=== PATIENT | female | born 1985 | race Caucasian/White ===

== ENCOUNTER → 2018-01-08 | Outpatient (CLI) | payer OTHER ==
--- NOTE | 2018-01-08 09:17 | NM ---
EXAMINATION TYPE: NM hepatobiliary w EF DATE OF EXAM: 01/08/2018 COMPARISON: NONE HISTORY: 32 year-old female right upper quadrant pain TECHNIQUE: After the intravenous administration of 5.2 mCi Tc 99m Mebrofenin hepatobiliary scintigrap hy is performed. Immediate images post injection. FINDINGS: There is satisfactory initial accumulation of tracer by the liver. The gallbladder is visualized wit hin 6 minutes. The small bowel activity is noted within 14 minutes. At one hour 8 ounces of oral en sure plus is given to mimic CCK and gallbladder ejection fraction is calculated at 52 %, in the naveed l range. Therefore there is no scintigraphic evidence of cystic or common bile duct obstruction to s uggest acute cholecystitis or gallbladder dyskinesia. IMPRESSION: Exam is within normal limits.
== END | disposition home or self-care (01) ==
LOC: RADNMMAIN 07:04
DX: R10.11 Right upper quadrant pain (principal)
CPT/HCPCS: 78226; A9537

== ENCOUNTER 2018-03-22 06:25 | Day surgery (SDC) | payer OTHER ==
[2018-03-16 16:18] VITALS: BMI 20.1
--- NOTE | 2018-03-21 15:12 | P.GSHP ---
History of Present Illness H&P Date: 03/22/18 CHIEF COMPLAINT: Rectal bleeding HISTORY OF PRESENT ILLNESS: The patient is a 32-year-old female who presents for removal of hemorrhoids and colonoscopy. PAST MEDICAL HISTORY: Please see list. PAST SURGICAL HISTORY: Please see list. MEDICATIONS: Please see list. ALLERGIES: Please see list. SOCIAL HISTORY: No illicit drug use FAMILY HISTORY: No reports of Crohn disease or ulcerative colitis. REVIEW OF ORGAN SYSTEMS: CONSTITUTIONAL: No reports of fevers or chills. PHYSICAL EXAM: VITAL SIGNS: Stable GENERAL: Well-developed pleasant in no acute distress. HEENT: No scleral icterus. Extraocular movements grossly intact. Moist buccal mucosa. NECK: Supple without lymphadenopathy. CHEST: Unlabored respirations. Equal bilateral excursions. CARDIOVASCULAR: Regular rate and rhythm. Distal 2+ pulses. ABDOMEN: Soft, nontender, nondistended. MUSCULOSKELETAL: No clubbing, cyanosis, or edema. ASSESSMENT: 1. Rectal bleeding PLAN: 1. Recommend colonoscopy with removal of hemorrhoids Past Medical History Past Medical History: Asthma Additional Past Medical History / Comment(s): HX KIDNEY STONES X2. HEMORRHOIDS. BLOOD IN STOOL. History of Any Multi-Drug Resistant Organisms: None Reported Additional Past Surgical History / Comment(s): MISSED AB D&C. Past Anesthesia/Blood Transfusion Reactions: Motion Sickness Smoking Status: Former smoker - Past Family History Father Family Medical History: Cancer Medications and Allergies Home Medications Medication Instructions Recorded Confirmed Type ALPRAZolam [Xanax] 1 mg PO DAILY 03/16/18 03/16/18 History Hyoscyamine Sulfate [Levbid] 0.375 mg PO BID 03/16/18 03/16/18 History Ibuprofen 800 mg PO Q8H PRN 03/16/18 03/16/18 History Lidocaine 2% Gel [Xylocaine Jelly 1 applic RECTAL BID PRN 03/16/18 03/16/18 History 2%] Venlafaxine HCl [Effexor] 37.5 mg PO DAILY 03/16/18 03/16/18 History Allergies Allergy/AdvReac Type Severity Reaction Status Date / Time morphine Allergy Itching, Verified 03/16/18 15:44 VOMITING, FACE SWELLS
[~2018-03-22 06:25] MED LIST: ACETAMINOPHEN IV (For NPO) 1,000 MG in EMPTY BAG 1 BAG IVPB ONE; BUPIVACAINE LIPOSOME/PF 1.3% 20 ML, SODIUM CHLORIDE 0.9% 10 ML MISCELLANE ONE; DEXAMETHASONE SOD PHOSPHATE 10 MG/ML 1 ML VIAL IV ONE; LACTATED RINGERS 1,000 ML IV SCH; ONDANSETRON ODT 4 MG TAB PO ONE; Pre Op ABX Message 1 EACH MISC MISCELLANE ONE; ceFAZolin IN SWFI 2 GM/20 ML SYRINGE IVP ONE; fentaNYL (PF) 50 MCG/ML 2 ML AMP IV PRN; metroNIDAZOLE-NS PMX 500 MG in SALINE 100 100ML.BAG IVPB ONE
[2018-03-22 07:11] VITALS: RESP 16
[2018-03-22] MEDS ORDERED: LIDOCAINE 1% 20 ML VIAL (10MG/ML) FOR IV START INTRADERMA ONE (07:11)
[2018-03-22] MEDS ORDERED: ONDANSETRON 4 MG/2 ML VIAL IVP ONE (07:17)
[2018-03-22] MEDS ORDERED: fentaNYL (PF) 50 MCG/ML 2 ML AMP ONE (07:37)
[2018-03-22] MEDS ORDERED: PROPOFOL 10 MG/ML 20 ML VIAL IV ONE (07:37)
[2018-03-22] MEDS ORDERED: MIDAZOLAM 2 MG/2 ML VIAL ONE (07:37)
[2018-03-22] MEDS ORDERED: PHENYLEPHRINE-0.9% NACL SYG 1 MG/10 ML SYRINGE ONE (07:37)
[2018-03-22] MEDS ORDERED: LACTATED RINGERS 1,000 ML IV ONE (08:25)
[2018-03-22] MEDS ORDERED: BACITRACIN OINT 1 EACH PACKET TOPICAL ONE (08:34)
[2018-03-22 08:46] VITALS: TEMP 97
--- NOTE | 2018-03-22 08:46 | P.HPADDEND ---
H&P Addendum H&P Addendum Date: 03/22/18 Patient's questions addressed. Postoperative instructions reviewed including antibiotics, pain meds, stool softener. Sitz bath reviewed.
--- NOTE | 2018-03-22 08:50 | P.PCN ---
Date of Procedure: 03/22/18 Description of Procedure: PREOPERATIVE DIAGNOSIS: Rectal bleeding. POSTOPERATIVE DIAGNOSIS: Rectal bleeding. Internal hemorrhoids. External hemorrhoids. OPERATION: Colonoscopy to the ascending colon, flexible sigmoidoscopy SURGEON: Marian Wyman MD. ANESTHESIA: MAC. INDICATIONS: The patient is a 32-year-old female who presents with rectal bleeding. Colonoscopy was advised. Benefits and risks were described and informed consent was obtained. DESCRIPTION OF PROCEDURE: The patient had undergone Gatorade, MiraLAX and Dulcolax prep. She had been brought into the operating room and laid in the left lateral decubitus position. After adequate intravenous sedation, the rectum was examined with 2% lidocaine jelly. External hemorrhoids were encountered. The rectal tone was within normal limits. No lesions were palpated in the rectal vault. An Olympus colonoscope was advanced along the rectum to a very tortuous sigmoid colon. Despite multiple maneuvers, the sigmoid colon had tortuosity prevented further advancement of scope. The scope was passed to 60 cm from the anal verge. No evidence of polyps were identified. The patient had tolerated the procedure well. FINDINGS: Tortuous sigmoid colon External prolapsed hemorrhoids. Internal prolapsed hemorrhoids Scope advanced to sigmoid colon at 60 cm. No arteriovenous malformations. No adenomatous polyps. No focal colitis. RECOMMENDATIONS: Proceed with hemorrhoidectomy
--- NOTE | 2018-03-22 08:58 | P.PCN ---
Date of Procedure: 03/22/18 Description of Procedure: SURGEON: MARIAN WYMAN MD LASTING MACHINE OPERATOR: NONE. PREOPERATIVE DIAGNOSES: 1. History of complicated internal hemorrhoids, grade 4 2. History of complicated external hemorrhoids, grade 4. 3. Rectal bleeding. POSTOPERATIVE DIAGNOSES: 1. History of complicated internal hemorrhoids, grade 4, with bleeding. 2. History of complicated external hemorrhoids, grade 4. 3. Rectal bleeding. OPERATION: 1. Intraoperative colonoscopy (please see separate operative report). 2. Excision of internal and external hemorrhoids x3 using LigaSure. ANESTHESIA: General with local anesthetic, Exparel. ESTIMATED BLOOD LOSS: 1 mL. PATHOLOGY: Internal, external hemorrhoidal complex x 3. FINDINGS: 1. Complicated internal hemorrhoid, grade 4 with recent bleed. 2. External hemorrhoid, grade 4 excised. 3. No anal stricture upon excision of hemorrhoidal complexes. INDICATIONS: The patient is a 32-year-old female who presents with history of rectal bleeding. She has history of complicated hemorrhoids. She presents for excision of her hemorrhoids including colonoscopy. Benefits and risks of the procedure, including bleeding, infection, incontinence, recurrent pain and recurrence of the hemorrhoids were discussed in detail. Informed consent was obtained. DESCRIPTION: Patient was brought to the operating room. An initial intraoperative colonoscopy was proposed. The patient was repositioned in the left lateral decubitus position. A timeout protocol and an intraoperative colonoscopy was completed. Please see separate operative report for details. The patient was now prepared for the surgical portion of her procedure. After general induction, she was then repositioned the prone jackknife position. Next, the perineum and buttocks was spread apart using Mastisol. The perineum was then prepped and draped in standard sterile fashion using Betadine. Preoperative medication was confirmed. Prior to incision, a timeout protocol was confirmed with surgical team. Initially 2 fingers was easily inserted for dilation of the anus. Next, using a Hill-Higgins anoscope, each hemorrhoidal cushion was addressed using a hand-held LigaSure. In a stepwise fashion, each hemorrhoidal complex was elevated using an Allis clamp. Of the right lateral cushion, a grade 4 internal and external hemorrhoidal complex of recent bleeding was encountered and excised. Next, attention was brought to the anterior lateral portion whereby grade 4 internal/external hemorrhoid was also excised in a similar fashion using a LigaSure. Finally the hemorrhoidal complex was elevated using a Allis clamp and the left lateral cushion was excised at the internal and external complex using a LigaSure device. Careful hemostasis was checked and without any bleeding. At the end of the case, the anus was without any features of the anal stricture or stenosis. Please note that prior to hemorrhoidectomy a rectal block using Exparel was placed for anesthetic. The perineum was cleansed. Bacitracin ointment was applied. A 4 x 4 with mesh underwear was placed. At the end of the procedure, needle, sponge, and counts had been verified correct by the surgical scheduler. The patient then had tolerated the procedure well. Intraoperative findings including postoperative care instructions were discussed with her family whereby she Sitz baths at least 3 times daily was advised. Stool softeners including prophylactic Flagyl for 5 to 7 day course was also addressed as well as pain medication. Plan - Discharge Summary New Discharge Prescriptions: New Docusate [Colace] 100 mg PO DAILY #20 capsule metroNIDAZOLE [Flagyl] 500 mg PO BID #10 tab Discontinued Lidocaine 2% Gel [Xylocaine Jelly 2%] 1 applic RECTAL BID PRN PRN Reason: RECTAL PAIN No Action Ibuprofen 800 mg PO Q8H PRN PRN Reason: Pain Venlafaxine HCl [Effexor] 37.5 mg PO DAILY Hyoscyamine Sulfate [Levbid] 0.375 mg PO BID ALPRAZolam [Xanax] 1 mg PO DAILY Discharge Medication List ALPRAZolam [Xanax] 1 mg PO DAILY 03/16/18 [History] Hyoscyamine Sulfate [Levbid] 0.375 mg PO BID 03/16/18 [History] Ibuprofen 800 mg PO Q8H PRN 03/16/18 [History] Venlafaxine HCl [Effexor] 37.5 mg PO DAILY 03/16/18 [History] Docusate [Colace] 100 mg PO DAILY #20 capsule 03/22/18 [Rx] metroNIDAZOLE [Flagyl] 500 mg PO BID #10 tab 03/22/18 [Rx] Follow up Appointment(s)/Referral(s): Marian Wyman MD [STAFF PHYSICIAN] - 03/30/18 Patient Instructions/Handouts: Sitz Bath (DC), *Surgery [facility] - Hemorrhoidectomy Discharge Instructions Activity/Diet/Wound Care/Special Instructions: Sitz bath 3 times daily and after bowel movements. Discontinue stool softener for diarrhea. Discharge Disposition: HOME SELF-CARE
[2018-03-22] MEDS ORDERED: IV FLUID CONTINUATION 1,000 ML IV ONE (09:41)
[2018-03-22] MEDS ORDERED: HYDROcodone/APAP 5-325MG 1 EACH TAB PO ONE (10:48)
[2018-03-22 11:08] VITALS: BP 118/76; PULSE 67
== END 2018-03-22 11:39 | disposition home or self-care (01) ==
LOC: OR 06:25
PROVIDERS: ATTEND Surgery Plastic and Reconstructive Surgery
DX: K64.3 Fourth degree hemorrhoids (principal); K62.5 Hemorrhage of anus and rectum; Q43.8 Other specified congenital malformations of intestine; J45.909 Unspecified asthma, uncomplicated; Z87.891 Personal history of nicotine dependence; F41.9 Anxiety disorder, unspecified; K58.9 Irritable bowel syndrome, unspecified; Z79.899 Other long term (current) drug therapy; Z88.5 Allergy status to narcotic agent
CPT/HCPCS: 81025; 88304; 45380; 46945; 46999; J2250; J1100; J2405; J3010; J0131; J2370; C9290; J2704; J0690

== ENCOUNTER 2018-04-17 20:41 | Emergency (ER) | payer OTHER ==
[2018-04-17 20:49] VITALS: RESP 18; TEMP 98.4
--- NOTE | 2018-04-17 21:45 | ED ---
General Adult HPI - General Chief complaint: Recheck/Abnormal Lab/Rx Stated complaint: S/p surgical pain Time Seen by Provider: 04/17/18 21:10 Source: patient, family Mode of arrival: ambulatory Limitations: no limitations - History of Present Illness Initial comments: This patient is a 32-year-old woman who presents to be evaluated for perianal pain. Patient states she had a hemorrhoidectomy performed on March [address] Wyman. She states that she had been doing fairly well following the procedure and in fact did not go to the scheduled postoperative as she was doing pretty well. She states that on Thursday or so she started having sharp pains when she attempted to have bowel movement. This prompted her to call Dr. Wyman and she was seen in the clinic for the sharp pains, or she states she was given additional prescription for lidocaine as well as hydrocodone. She states that she continues to have the sharp pains every time she attempts to have bowel movement and she has at times noted small amount of blood passing. No clots. Patient denies abdominal pain. Onset/Timin -: days(s) - Related Data Home Medications Medication Instructions Recorded Confirmed ALPRAZolam [Xanax] 1 mg PO DAILY 03/16/18 04/17/18 Hyoscyamine Sulfate [Levbid] 0.375 mg PO BID 03/16/18 04/17/18 Ibuprofen 800 mg PO Q8H PRN 03/16/18 04/17/18 Venlafaxine HCl [Effexor] 37.5 mg PO DAILY 03/16/18 04/17/18 Previous Rx's Medication Instructions Recorded Docusate [Colace] 100 mg PO DAILY #20 capsule 03/22/18 HYDROcodone/APAP 5-325MG [[place] 1 tab PO Q6HR PRN #20 tab 03/22/18 5-325] Ibuprofen [Motrin] 600 mg PO Q8HR PRN #30 tab 03/22/18 HYDROcodone/APAP 7.5-325MG [[place] 1 each PO Q4H PRN #30 tab 03/26/18 7.5-325] HYDROcodone/APAP 7.5-325MG [[place] 1 each PO Q4H PRN #18 tab 04/13/18 7.5-325] Hydrocortisone/Pramoxine 0 applic RECTAL BID #1 bottle 04/17/18 [Proctofoam-Hc 1%-1% Foam] Lidocaine Viscous [Xylocaine 2 ml TOPICAL TID PRN #100 ml 04/17/18 Viscous 2%] Allergies Allergy/AdvReac Type Severity Reaction Status Date / Time morphine Allergy Itching, Verified 04/17/18 20:49 VOMITING, FACE SWELLS Review of Systems ROS Statement: Those systems with pertinent positive or pertinent negative responses have been documented in the HPI. ROS Other: All systems not noted in ROS Statement are negative. Past Medical History Past Medical History: Asthma Additional Past Medical History / Comment(s): HX KIDNEY STONES X2. HEMORRHOIDS. BLOOD IN STOOL. History of Any Multi-Drug Resistant Organisms: None Reported Additional Past Surgical History / Comment(s): MISSED AB D&C., hemorrhoidectomy Past Anesthesia/Blood Transfusion Reactions: Motion Sickness Past Psychological History: Anxiety, Depression, Panic Disorder Smoking Status: Former smoker Past Alcohol Use History: None Reported Past Drug Use History: None Reported - Past Family History Father Family Medical History: Cancer General Exam Limitations: no limitations Respiratory exam: Present: normal lung sounds bilaterally. Absent: respiratory distress Cardiovascular Exam: Present: regular rate, normal rhythm GI/Abdominal exam: Present: soft. Absent: tenderness, guarding, rebound, mass Rectal exam: Present: normal inspection, normal rectal tone, tenderness, other ( Patient has 1 small external hemorrhoid without evidence of being thrombosed. I did attempt digital rectal examination and the patient has marked tenderness and appears to have anal fissure as the etiology.). Absent: decreased rectal tone, mass Skin exam: Present: warm, dry, intact, normal color. Absent: rash Course Vital Signs 04/17/18 04/17/18 20:45 21:56 Temperature 98.4 F 98.4 F Pulse Rate 88 69 Respiratory 18 18 Rate Blood Pressure 133/59 114/55 O2 Sat by Pulse 100 99 Oximetry Medical Decision Making - Medical Decision Making Patient is a 32-year-old woman with perianal pain and difficulty passing a bowel movement. It appears that this is due to anal fissure which is quite tender. The digital rectal exam is a bit limited due to patient discomfort but I did not detect any abscess. The patient requested that she receive some pain relief so she could pass a bowel movement tonight at home. I discussed risks and benefits and the patient requested that she be given a lidocaine shot. I did give some longer acting bupivacaine so that she may pass a bowel movement tonight. Discussed that there is risk of infection associated with any injection near the anus. The patient is to follow-up first thing in the clinic, or return here tomorrow should things not be improving to have consideration of computed tomography scan to rule out abscess higher up than I was able to assess with the digital rectal exam. Disposition Clinical Impression: Anal fissure, Hemorrhoid Disposition: HOME SELF-CARE Condition: Good Instructions: Hemorrhoids (ED), Anal Fissure (ED) Prescriptions: Hydrocortisone/Pramoxine [Proctofoam-Hc 1%-1% Foam] 0 applic RECTAL BID #1 bottle Lidocaine Viscous [Xylocaine Viscous 2%] 2 ml TOPICAL TID PRN #100 ml PRN Reason: Pain Is patient prescribed a controlled substance at d/c from ED?: No Referrals: Shanda Dias MD [Primary Care Provider] - 1-2 days Marian Wyman MD [STAFF PHYSICIAN] - 1-2 days
[2018-04-17 21:57] VITALS: BP 114/55; PULSE 69
[2018-04-17] MEDS ORDERED: BUPIVACAINE (PF) 0.5% 30 ML VIAL SQ STA (22:01)
== END 2018-04-17 22:43 | disposition home or self-care (01) ==
LOC: EC 20:41
DX: K64.4 Residual hemorrhoidal skin tags (principal); K60.2 Anal fissure, unspecified; F41.0 Panic disorder [episodic paroxysmal anxiety]; F32.9 Major depressive disorder, single episode, unspecified; Z87.891 Personal history of nicotine dependence; Z98.890 Other specified postprocedural states; Z79.899 Other long term (current) drug therapy; Z88.5 Allergy status to narcotic agent
CPT/HCPCS: 99283

== ENCOUNTER 2018-05-19 12:18 | Emergency (ER) | payer OTHER ==
[2018-05-19 12:36] VITALS: RESP 18; TEMP 98.8
[2018-05-19] MEDS ORDERED: KETOROLAC 30 MG/ML 1 ML VIAL IVP STA (13:10)
--- NOTE | 2018-05-19 13:17 | ED ---
GI Bleed HPI - General Chief complaint: GI Bleed Stated complaint: Post Op Rectal Bleeding Time Seen by Provider: 05/19/18 12:45 Source: patient, RN notes reviewed Mode of arrival: ambulatory Limitations: no limitations - History of Present Illness Initial comments: This is a 32-year-old female with a history of a hemorrhoidectomy on March 22 of this year states she's been having rectal pain with intermittent bleeding since that time. She states she was seen in emergency department one since and is back today because she states her pain is 13/10 in severity. He's had decreased oral intake because of fear of having bowel movements because of the pain. She states is very sharp ache he does radiate down to her vagina into her leg she says. No fevers chills or sweats she states she did fill a toilet bowl with blood this morning. She does relate that she is very tired of this she has had some lightheadedness and dizziness. No nausea no vomiting. She also does states she had a rectal fissure. MD complaint: blood on toilet paper, other - Related Data Home Medications Medication Instructions Recorded Confirmed ALPRAZolam [Xanax] 0.5 mg PO DAILY PRN 05/19/18 05/19/18 HYDROcodone/APAP 7.5-325MG [[place] 1 tab PO Q4H PRN 05/19/18 05/19/18 7.5-325] Phenyleph/Mineral Oil/Petrolat 1 applic RECTAL Q3H PRN 05/19/18 05/19/18 [Preparation H Ointment] Recticare 1 applic RECTAL Q3H PRN 05/19/18 05/19/18 Rectiv 1 applic RECTAL Q3H PRN 05/19/18 05/19/18 Christin Carrillo [Preparation H 1 pad TOPICAL Q3H PRN 05/19/18 05/19/18 Pad/Wipe] Previous Rx's Medication Instructions Recorded Ibuprofen [Motrin] 600 mg PO Q8HR PRN #30 tab 03/22/18 Allergies Allergy/AdvReac Type Severity Reaction Status Date / Time morphine Allergy Itching, Verified 05/19/18 12:50 VOMITING, FACE SWELLS Review of Systems ROS Statement: Those systems with pertinent positive or pertinent negative responses have been documented in the HPI. ROS Other: All systems not noted in ROS Statement are negative. Past Medical History Past Medical History: Asthma Additional Past Medical History / Comment(s): HX KIDNEY STONES X2. HEMORRHOIDS. BLOOD IN STOOL. History of Any Multi-Drug Resistant Organisms: None Reported Additional Past Surgical History / Comment(s): MISSED AB D&C., hemorrhoidectomy Past Anesthesia/Blood Transfusion Reactions: Motion Sickness Past Psychological History: Anxiety, Depression, Panic Disorder Smoking Status: Former smoker Past Alcohol Use History: None Reported Past Drug Use History: None Reported - Past Family History Father Family Medical History: Cancer General Exam - General Exam Comments Initial Comments: This is a well-developed well-nourished awake alert oriented 3 female Limitations: no limitations General appearance: alert, anxious, in distress Head exam: Present: atraumatic, normocephalic, normal inspection Eye exam: Present: normal appearance, PERRL, EOMI. Absent: scleral icterus, conjunctival injection, periorbital swelling ENT exam: Present: normal exam, mucous membranes moist Neck exam: Present: normal inspection. Absent: tenderness, meningismus, lymphadenopathy Respiratory exam: Present: normal lung sounds bilaterally. Absent: respiratory distress, wheezes, rales, rhonchi, stridor Cardiovascular Exam: Present: regular rate. Absent: systolic murmur, diastolic murmur, rubs, gallop, clicks GI/Abdominal exam: Present: soft, normal bowel sounds. Absent: distended, tenderness, guarding, rebound, rigid Rectal exam: Present: other (External hemorrhoids are noted no definite fissure the patient will not allow me to do a rectal exam due to the pain he has had 2 hemorrhoids one at 1 o'clock position one at the 3 o'clock position which are erythematous and tender to palpation no active bleeding seen at this time.) Extremities exam: Present: normal inspection, full ROM, normal capillary refill. Absent: tenderness, pedal edema, joint swelling, calf tenderness Back exam: Present: normal inspection Neurological exam: Present: alert, oriented X3, CN II-XII intact Psychiatric exam: Present: normal affect, normal mood Skin exam: Present: warm, dry, intact, normal color. Absent: rash Course Vital Signs 05/19/18 12:34 Temperature 98.8 F Pulse Rate 108 H Respiratory 18 Rate Blood Pressure 112/77 O2 Sat by Pulse 97 Oximetry Medical Decision Making - Medical Decision Making Patient is feeling much improved after IV over male. I did review the labs and did discuss the case with Dr. Alicea. Patient apparently will be seen Dr. August on May 31. The patient was offered follow-up with Dr. Alicea if she wished. She is declining at this time. Patient does have old medication she states that her wood scaler prescribed for her anal fissure and hemorrhoids a. She was advised to continue with that as well as since passed what she's been doing was also recommend that she try [id number] Tylenol as directed. She is agreeable with this. She will be discharged she states she hasn't felt this good in the long time she's been able sit up now which she has not been able do for a while. She states this started feeling much improved within 10-20 minutes after the IV started. - Lab Data Result diagrams: 05/19/18 13:27 05/19/18 13:27 Lab Results 05/19/18 05/19/18 05/19/18 Range/Units 13:27 13:27 14:38 WBC 5.9 (3.8-10.6) k/uL RBC 4.11 (3.80-5.40) m/uL Hgb 12.7 (11.4-16.0) gm/dL Hct 38.0 (34.0-46.0) % MCV 92.5 (80.0-100.0) fL MCH 30.9 (25.0-35.0) pg MCHC 33.5 (31.0-37.0) g/dL RDW 12.5 (11.5-15.5) % Plt Count 209 (150-450) k/uL Neutrophils % 69 % Lymphocytes % 23 % Monocytes % 7 % Eosinophils % 0 % Basophils % 0 % Neutrophils # 4.0 (1.3-7.7) k/uL Lymphocytes # 1.4 (1.0-4.8) k/uL Monocytes # 0.4 (0-1.0) k/uL Eosinophils # 0.0 (0-0.7) k/uL Basophils # 0.0 (0-0.2) k/uL Sodium 139 (137-145) mmol/L Potassium 4.4 (3.5-5.1) mmol/L Chloride 104 (98-107) mmol/L Carbon Dioxide 24 (22-30) mmol/L Anion Gap 11 mmol/L BUN 9 (7-17) mg/dL Creatinine 0.60 (0.52-1.04) mg/dL Est GFR (CKD-EPI)AfAm >90 (>60 ml/min/1.73 sqM) Est GFR (CKD-EPI)NonAf >90 (>60 ml/min/1.73 sqM) Glucose 90 (74-99) mg/dL Calcium 9.5 (8.4-10.2) mg/dL Magnesium 1.9 (1.6-2.3) mg/dL Total Bilirubin 0.3 (0.2-1.3) mg/dL AST 19 (14-36) U/L ALT 28 (9-52) U/L Alkaline Phosphatase 53 (38-126) U/L Total Protein 7.2 (6.3-8.2) g/dL Albumin 4.6 (3.5-5.0) g/dL Urine Color Urine Appearance (Clear) Urine pH (5.0-8.0) Ur Specific [place] (1.001-1.035) Urine Protein (Negative) Urine Glucose (UA) (Negative) Urine Ketones (Negative) Urine Blood (Negative) Urine Nitrite (Negative) Urine Bilirubin (Negative) Urine Urobilinogen (<2.0) mg/dL Ur Leukocyte Esterase (Negative) Urine RBC (0-5) /hpf Urine WBC (0-5) /hpf Ur Squamous Epith Cells (0-4) /hpf Urine Bacteria (None) /hpf Urine Mucus (None) /hpf Urine HCG, Qual Not Detected (Not Detectd) 05/19/18 Range/Units 14:38 WBC (3.8-10.6) k/uL RBC (3.80-5.40) m/uL Hgb (11.4-16.0) gm/dL Hct (34.0-46.0) % MCV (80.0-100.0) fL MCH (25.0-35.0) pg MCHC (31.0-37.0) g/dL RDW (11.5-15.5) % Plt Count (150-450) k/uL Neutrophils % % Lymphocytes % % Monocytes % % Eosinophils % % Basophils % % Neutrophils # (1.3-7.7) k/uL Lymphocytes # (1.0-4.8) k/uL Monocytes # (0-1.0) k/uL Eosinophils # (0-0.7) k/uL Basophils # (0-0.2) k/uL Sodium (137-145) mmol/L Potassium (3.5-5.1) mmol/L Chloride (98-107) mmol/L Carbon Dioxide (22-30) mmol/L Anion Gap mmol/L BUN (7-17) mg/dL Creatinine (0.52-1.04) mg/dL Est GFR (CKD-EPI)AfAm (>60 ml/min/1.73 sqM) Est GFR (CKD-EPI)NonAf (>60 ml/min/1.73 sqM) Glucose (74-99) mg/dL Calcium (8.4-10.2) mg/dL Magnesium (1.6-2.3) mg/dL Total Bilirubin (0.2-1.3) mg/dL AST (14-36) U/L ALT (9-52) U/L Alkaline Phosphatase (38-126) U/L Total Protein (6.3-8.2) g/dL Albumin (3.5-5.0) g/dL Urine Color Yellow Urine Appearance Cloudy H (Clear) Urine pH 6.0 (5.0-8.0) Ur Specific [place] 1.013 (1.001-1.035) Urine Protein Negative (Negative) Urine Glucose (UA) Negative (Negative) Urine Ketones Trace H (Negative) Urine Blood Negative (Negative) Urine Nitrite Negative (Negative) Urine Bilirubin Negative (Negative) Urine Urobilinogen <2.0 (<2.0) mg/dL Ur Leukocyte Esterase Small H (Negative) Urine RBC 1 (0-5) /hpf Urine WBC 8 H (0-5) /hpf Ur Squamous Epith Cells 14 H (0-4) /hpf Urine Bacteria Few H (None) /hpf Urine Mucus Occasional H (None) /hpf Urine HCG, Qual (Not Detectd) Disposition Clinical Impression: Rectal pain, Hemorrhoids, Anal fissure Disposition: HOME SELF-CARE Condition: Good Instructions: Hemorrhoids (ED), Anal Fissure (ED), Rectal Bleeding (ED), Rectal Pain (ED) Additional Instructions: Tylenol as directed Is patient prescribed a controlled substance at d/c from ED?: No Referrals: Shanda Dias MD [Primary Care Provider] - 1-2 days
[2018-05-19 13:36] LABS: Basophils % (A) 0 %; Eosinophils % (A) 0 %; HGB 12.7 gm/dL (11.4-16.0); Lymphocytes # (A) 1.4 k/uL (1.0-4.8); Lymphocytes % (A) 23 %; MCH 30.9 pg (25.0-35.0); MCHC 33.5 g/dL (31.0-37.0); MCV 92.5 fL (80.0-100.0); Mean Platelet Volume 6.9; Monocytes # (A) 0.4 k/uL (0-1.0); Monocytes % (A) 7 %; Neutrophils % (A) 69 %; Platelet Count 209 k/uL (150-450); RBC 4.11 m/uL (3.80-5.40); RDW 12.5 % (11.5-15.5); WBC 5.9 k/uL (3.8-10.6)
[2018-05-19 13:52] LABS: ALT 28 U/L (9-52); AST 19 U/L (14-36); Albumin 4.6 g/dL (3.5-5.0); Alkaline Phosphatase 53 U/L (38-126); Anion Gap 11 mmol/L; Blood Urea Nitrogen 9 mg/dL (7-17); Calcium 9.5 mg/dL (8.4-10.2); Carbon Dioxide 24 mmol/L (22-30); Chloride 104 mmol/L (98-107); Glucose 90 mg/dL (74-99); Magnesium 1.9 mg/dL (1.6-2.3); Potassium 4.4 mmol/L (3.5-5.1); Sodium 139 mmol/L (137-145); Total Bilirubin 0.3 mg/dL (0.2-1.3); Total Protein 7.2 g/dL (6.3-8.2)
[2018-05-19 14:57] LABS: Appearance,Urine Cloudy (Clear); Bacteria,Urine Few /hpf; Bilirubin,Urine Negative (Negative); Blood,Urine Negative (Negative); Color,Urine Yellow; Glucose,Urine (UA) Negative (Negative); Ketones,Urine Trace (Negative); Leukocyte Esterase,Urine Small (Negative); Mucus,Urine Occasional /hpf; Nitrite,Urine Negative (Negative); Protein,Urine Negative (Negative); RBC,Urine 1 /hpf (0-5); Specific Gravity,Urine 1.013 (1.001-1.035); Squamous Epithelial Cell,Urine 14 /hpf (0-4); Urobilinogen,Urine <2.0 mg/dL (<2.0); WBC,Urine 8 /hpf (0-5)
[2018-05-19 16:45] VITALS: BP 101/57; PULSE 57
== END 2018-05-19 16:45 | disposition home or self-care (01) ==
LOC: EC 12:18
DX: K64.4 Residual hemorrhoidal skin tags (principal); K60.2 Anal fissure, unspecified; K62.89 Other specified diseases of anus and rectum; Z87.891 Personal history of nicotine dependence; Z88.5 Allergy status to narcotic agent; Z98.890 Other specified postprocedural states
CPT/HCPCS: 36415; 80053; 83735; 85025; 81001; 81025; 99285; 96374; J1885

== ENCOUNTER 2022-12-25 10:03 | Emergency (ER) | payer OTHER ==
[2022-12-25 10:09] VITALS: TEMP 97
[2022-12-25] MEDS ORDERED: SODIUM CHLORIDE 0.9% 500 ML 500 ML IV STA (10:12)
[2022-12-25] MEDS ORDERED: ONDANSETRON 4 MG/2 ML VIAL IVP STA (10:27)
--- NOTE | 2022-12-25 10:32 | ED ---
Abdominal Pain HPI - General Chief Complaint: Abdominal Pain Stated Complaint: Vaginal Bleeding,Abd Pain Time Seen by Provider: 12/25/22 10:10 Source: patient, RN notes reviewed, old records reviewed Mode of arrival: ambulatory Limitations: no limitations - History of Present Illness Initial Comments: This is a well-appearing, pleasant 37-year-old female that presents to the emergency room with complaints of vaginal spotting, nausea vomiting and diarrhea that started on Thursday. Patient states that she did take a test on Thursday that was positive. She does not have normal menstrual cycles and her last menstrual cycle was either September or October. She states that she feels like something is moving through her right fallopian tube. , 2 miscarriages in the past. She is a nonsmoker. History of asthma, and kidney stones MD Complaint: abdominal pain (right ) -: days(s) (4) Severity scale (1-10): 5 Quality: cramping Consistency: intermittent Improves With: bowel movement Associated Symptoms: nausea, vomiting, diarrhea - Related Data Home Medications Medication Instructions Recorded Confirmed ALPRAZolam [Xanax] 0.5 mg PO DAILY PRN 18 05/19/18 HYDROcodone/APAP 7.5-325MG [[place] 1 tab PO Q4H PRN 05/19/18 05/19/18 7.5-325] Phenyleph/Mineral Oil/Petrolat 1 applic RECTAL Q3H PRN 05/19/18 05/19/18 [Preparation H Ointment] Recticare 1 applic RECTAL Q3H PRN 05/19/18 05/19/18 Rectiv 1 applic RECTAL Q3H PRN 05/19/18 05/19/18 annie Pierce [Preparation H 1 pad TOPICAL Q3H PRN 05/19/18 05/19/18 Pad/Wipe] Previous Rx's Medication Instructions Recorded Ibuprofen [Motrin] 600 mg PO Q8HR PRN #30 tab 03/22/18 Cephalexin [Keflex] 500 mg PO BID 7 Days #14 cap 12/25/22 Allergies Allergy/AdvReac Type Severity Reaction Status Date / Time morphine Allergy Itching, Verified 12/25/22 10:06 VOMITING, FACE SWELLS Review of Systems ROS Statement: Those systems with pertinent positive or pertinent negative responses have been documented in the HPI. ROS Other: All systems not noted in ROS Statement are negative. Past Medical History Past Medical History: Asthma Additional Past Medical History / Comment(s): HX KIDNEY STONES X2. HEMORRHOIDS. BLOOD IN STOOL. History of Any Multi-Drug Resistant Organisms: None Reported Additional Past Surgical History / Comment(s): MISSED AB D&C., hemorrhoidectomy Past Anesthesia/Blood Transfusion Reactions: Motion Sickness Past Psychological History: Anxiety, Depression, Panic Disorder Smoking Status: Never smoker Past Alcohol Use History: None Reported Past Drug Use History: None Reported - Past Family History Father Family Medical History: Cancer General Exam Limitations: no limitations General appearance: alert, in no apparent distress Head exam: Present: atraumatic Eye exam: Present: normal appearance. Absent: scleral icterus, conjunctival injection, periorbital swelling Respiratory exam: Present: normal lung sounds bilaterally. Absent: respiratory distress, accessory muscle use Cardiovascular Exam: Present: tachycardia GI/Abdominal exam: Present: soft. Absent: distended, tenderness, rigid Extremities exam: Present: normal capillary refill. Absent: pedal edema Back exam: Absent: tenderness, CVA tenderness (R), CVA tenderness (L) Neurological exam: Present: alert, oriented X3, normal gait Psychiatric exam: Present: normal affect, normal mood Skin exam: Present: warm, dry, normal color. Absent: cyanosis, diaphoretic, petechiae, pallor Course Vital Signs 12/25/22 12/25/22 10:06 12:30 Temperature 97 F L Pulse Rate 104 H 85 Respiratory 16 15 Rate Blood Pressure 122/57 96/65 O2 Sat by Pulse 98 99 Oximetry - Reevaluation(s) Reevaluation #1: 12/25/22 11:02 Patient continues to have nausea after Zofran therefore Benadryl was given. Time: 11:01 Medical Decision Making - Medical Decision Making Labs show cloudy urine with moderate leukocyte esterase and bacteria with 8 white blood cell. Urine test is positive. She was treated with Rocephin. Ultrasound interpreted by me shows an intrauterine . Radiologist interpretation a single live uterine intrauterine with calculated ultrasound age of 6 weeks 2 days. No evidence of leukocytosis, hemoglobin and hematocrit are stable. Blood type A+. Vital signs are stable. She was prescribed vitamins declined stating she will buy them [id number]. She will be placed on Keflex for UTI. Directed to follow-up with her RESEARCH AND INSIGHTS EXECUTIVE and return with a concerning symptoms. Pelvic rest and nothing in the vagina until seen by RESEARCH AND INSIGHTS EXECUTIVE. Strict return parameters were discussed. Patient is agreeable to this plan of care. Case discussed with Dr. Mora Was pt. sent in by a medical professional or institution? @ -no Did you speak to anyone other than the patient for history? @ -no Did you review nursing and triage notes? @ -yes i agree Were old charts reviewed? @ -no Differential Diagnosis? @ -Subchorionic hemorrhage, ectopic , threatened , molar , implantation bleeding U/S interpreted by me (1pt. min.)? @ -Yes as above What testing was considered but not performed? (CT, X-rays, U/S, labs)? Why? @ no What meds were considered but not given? Why? @ -RhoGAM was considered however patient is blood type A+ Did you discuss the management of the patient with other professionals? @ -no Did you reconcile home meds? @ -no Was smoking cessation discussed for >3mins.? @ -n/a Was critical care preformed (if so, how long)? @ -no Were there social determinants of health that impacted care today? How? (Homelessness, low income, unemployed, alcoholism, drug addiction, transportation, low edu. Level, literacy, decrease access to med. care, senior living, rehab)? @ -none Was there de-escalation of care discussed even if they declined? (Discuss DNR or withdrawal of care, Hospice)? @ -no What co-morbidities impacted this encounter? (DM, HTN, Smoking, COPD, CAD, Cancer, CVA, Hep., AIDS, mental health diagnosis, sleep apnea, morbid obesity)? @ -asthma Was patient admitted / discharged? @ -discharged Undiagnosed new problem with uncertain prognosis? @ - Diagnosis/symptom? @ -Threatened , intrauterine Acute, or Chronic, or Acute on Chronic? @ -acute Uncomplicated (without systemic symptoms) or Complicated (systemic symptoms)? @ -Complicated Side effects of treatment? @ -[none] Exacerbation, Progression, or Severe Exacerbation] @ -[no] Poses a threat to life or bodily function? @ -[no] - Lab Data Result diagrams: 12/25/22 10:15 12/25/22 10:15 Lab Results 12/25/22 12/25/22 12/25/22 Range/Units 10:15 10:15 10:15 WBC 8.1 (3.8-10.6) k/uL RBC 4.10 (3.80-5.40) m/uL Hgb 13.0 (11.4-16.0) gm/dL Hct 38.0 (34.0-46.0) % MCV 92.6 (80.0-100.0) fL MCH 31.8 (25.0-35.0) pg MCHC 34.3 (31.0-37.0) g/dL RDW 12.9 (11.5-15.5) % Plt Count 256 (150-450) k/uL MPV 7.7 Neutrophils % 72 % Lymphocytes % 20 % Monocytes % 7 % Eosinophils % 0 % Basophils % 0 % Neutrophils # 5.8 (1.3-7.7) k/uL Lymphocytes # 1.6 (1.0-4.8) k/uL Monocytes # 0.6 (0-1.0) k/uL Eosinophils # 0.0 (0-0.7) k/uL Basophils # 0.0 (0-0.2) k/uL Sodium 136 L (137-145) mmol/L Potassium 3.7 (3.5-5.1) mmol/L Chloride 103 (98-107) mmol/L Carbon Dioxide 25 (22-30) mmol/L Anion Gap 8 mmol/L BUN 12 (7-17) mg/dL Creatinine 0.54 (0.52-1.04) mg/dL Est GFR (CKD-EPI)AfAm >90 (>60 ml/min/1.73 sqM) Est GFR (CKD-EPI)NonAf >90 (>60 ml/min/1.73 sqM) Glucose 96 (74-99) mg/dL Calcium 9.0 (8.4-10.2) mg/dL Total Bilirubin 0.6 (0.2-1.3) mg/dL AST 22 (14-36) U/L ALT 19 (4-34) U/L Alkaline Phosphatase 57 (38-126) U/L Total Protein 7.4 (6.3-8.2) g/dL Albumin 4.4 (3.5-5.0) g/dL HCG, Quant mIU/mL Urine Color Yellow Urine Appearance Cloudy H (Clear) Urine pH 6.5 (5.0-8.0) Ur Specific [place] 1.028 (1.001-1.035) Urine Protein 1+ H (Negative) Urine Glucose (UA) Negative (Negative) Urine Ketones Negative (Negative) Urine Blood Negative (Negative) Urine Nitrite Negative (Negative) Urine Bilirubin Negative (Negative) Urine Urobilinogen <2.0 (<2.0) mg/dL Ur Leukocyte Esterase Moderate H (Negative) Urine RBC 3 (0-5) /hpf Urine WBC 8 H (0-5) /hpf Ur Squamous Epith Cells 26 H (0-4) /hpf Urine Bacteria Rare H (None) /hpf Urine Mucus Many H (None) /hpf Urine HCG, Qual (Not Detectd) Blood Type Blood Type Recheck Bld Type Recheck Status 12/25/22 12/25/22 12/25/22 Range/Units 10:15 10:15 10:15 WBC (3.8-10.6) k/uL RBC (3.80-5.40) m/uL Hgb (11.4-16.0) gm/dL Hct (34.0-46.0) % MCV (80.0-100.0) fL MCH (25.0-35.0) pg MCHC (31.0-37.0) g/dL RDW (11.5-15.5) % Plt Count (150-450) k/uL MPV Neutrophils % % Lymphocytes % % Monocytes % % Eosinophils % % Basophils % % Neutrophils # (1.3-7.7) k/uL Lymphocytes # (1.0-4.8) k/uL Monocytes # (0-1.0) k/uL Eosinophils # (0-0.7) k/uL Basophils # (0-0.2) k/uL Sodium (137-145) mmol/L Potassium (3.5-5.1) mmol/L Chloride (98-107) mmol/L Carbon Dioxide (22-30) mmol/L Anion Gap mmol/L BUN (7-17) mg/dL Creatinine (0.52-1.04) mg/dL Est GFR (CKD-EPI)AfAm (>60 ml/min/1.73 sqM) Est GFR (CKD-EPI)NonAf (>60 ml/min/1.73 sqM) Glucose (74-99) mg/dL Calcium (8.4-10.2) mg/dL Total Bilirubin (0.2-1.3) mg/dL AST (14-36) U/L ALT (4-34) U/L Alkaline Phosphatase (38-126) U/L Total Protein (6.3-8.2) g/dL Albumin (3.5-5.0) g/dL HCG, Quant 92040.0 mIU/mL Urine Color Urine Appearance (Clear) Urine pH (5.0-8.0) Ur Specific [place] (1.001-1.035) Urine Protein (Negative) Urine Glucose (UA) (Negative) Urine Ketones (Negative) Urine Blood (Negative) Urine Nitrite (Negative) Urine Bilirubin (Negative) Urine Urobilinogen (<2.0) mg/dL Ur Leukocyte Esterase (Negative) Urine RBC (0-5) /hpf Urine WBC (0-5) /hpf Ur Squamous Epith Cells (0-4) /hpf Urine Bacteria (None) /hpf Urine Mucus (None) /hpf Urine HCG, Qual Detected (Not Detectd) Blood Type A Positive Blood Type Recheck A Pos Bld Type Recheck Status No Disposition Clinical Impression: UTI (urinary tract infection), Intrauterine , Threatened miscarriage in early Disposition: HOME SELF-CARE Condition: Good Instructions (If sedation given, give patient instructions): Threatened Miscarriage (ED), (ED), Urinary Tract Infection in (ED) Additional Instructions: Tylenol as needed for any discomfort. Take the antibiotics as prescribed for urinary tract infection. Pelvic rest and nothing in the vagina until seen by your [employer] AND INSIGHTS EXECUTIVE. Return to the emergency room with any new or concerning symptoms. Prescriptions: Cephalexin [Keflex] 500 mg PO BID 7 Days #14 cap Is patient prescribed a controlled substance at d/c from ED?: No Referrals: None,Stated [Primary Care Provider] - 1-2 days Time of Disposition: 12:06
[2022-12-25 10:40] LABS: Basophils % (A) 0 %; Eosinophils % (A) 0 %; Lymphocytes # (A) 1.6 k/uL (1.0-4.8); Lymphocytes % (A) 20 %; MCH 31.8 pg (25.0-35.0); MCHC 34.3 g/dL (31.0-37.0); MCV 92.6 fL (80.0-100.0); Mean Platelet Volume 7.7; Monocytes # (A) 0.6 k/uL (0-1.0); Monocytes % (A) 7 %; Neutrophils # (A) 5.8 k/uL (1.3-7.7); Neutrophils % (A) 72 %; Platelet Count 256 k/uL (150-450); RDW 12.9 % (11.5-15.5); WBC 8.1 k/uL (3.8-10.6)
[2022-12-25 10:52] LABS: Appearance,Urine Cloudy (Clear); Bacteria,Urine Rare /hpf; Bilirubin,Urine Negative (Negative); Blood,Urine Negative (Negative); Color,Urine Yellow; Glucose,Urine (UA) Negative (Negative); Ketones,Urine Negative (Negative); Leukocyte Esterase,Urine Moderate (Negative); Mucus,Urine Many /hpf; Nitrite,Urine Negative (Negative); PH, Urine 6.5 (5.0-8.0); Protein,Urine 1+ (Negative); RBC,Urine 3 /hpf (0-5); Specific Gravity,Urine 1.028 (1.001-1.035); Squamous Epithelial Cell,Urine 26 /hpf (0-4); Urobilinogen,Urine <2.0 mg/dL (<2.0); WBC,Urine 8 /hpf (0-5)
[2022-12-25 10:55] LABS: ALT 19 U/L (4-34); AST 22 U/L (14-36); African American GFR (CKD) >90 (>60 ml/min/1.73 sqM); Albumin 4.4 g/dL (3.5-5.0); Alkaline Phosphatase 57 U/L (38-126); Anion Gap 8 mmol/L; Blood Urea Nitrogen 12 mg/dL (7-17); Carbon Dioxide 25 mmol/L (22-30); Chloride 103 mmol/L (98-107); Glucose 96 mg/dL (74-99); Non-African American GFR(CKD) >90 (>60 ml/min/1.73 sqM); Potassium 3.7 mmol/L (3.5-5.1); Sodium 136 mmol/L (137-145); Total Bilirubin 0.6 mg/dL (0.2-1.3); Total Protein 7.4 g/dL (6.3-8.2)
[2022-12-25] MEDS ORDERED: cefTRIAXone IN SWFI 1,000 MG/10 ML SYRINGE IVP STA (10:56)
[2022-12-25] MEDS ORDERED: diphenhydrAMINE 50 MG/ML 1 ML VIAL IVP STA (11:01)
--- NOTE | 2022-12-25 11:46 | US ---
EXAMINATION TYPE: Transabdominal DATE OF EXAM: 12/25/2022 11:36 AM COMPARISON: NONE CLINICAL HISTORY: r/o ectopic. right pelvic pain, spotting EXAM PERFORMED: Transabdominal (TA) EXAM MEASUREMENTS: GESTATIONAL AGE / DATING Physician Established: Not yet established Dates by LMP: LMP unknown Dates by First Scan: No previous this is first scan Dates by Current Scan for: (6 weeks/2 days) EDC: 08/18/23 MATERNAL ANATOMY Uterus: 8.4 x 6.6 x 5.5cm Right Ovary: 3.0 x 1.8 x 2.7cm Left Ovary: 2.8 x 2.0 x 3.1cm Post CDS / Adnexa: appears wnl Presence of free fluid: no Presence of corpus luteal cyst: yes, complex area left ovary = 1.6 x 1.9 x 1.6cm GESTATION / SURVEY CRL: 0.5cm (6 weeks/2 days) Yolk Sac (normal less than 6mm): 0.3cm Heart Rate: 174 bpm Rhythm: Normal IUP: Viable IUP Date of LMP: unknown Beta HcG (if available): Not available at this time IMPRESSION: 1. Single live intrauterine with calculated ultrasound age of 6 weeks and 2 days. EDC: 0 08/18/23. 2. No definitive evidence for heterotopic with intrauterine and extrauterine ect opic .
[2022-12-25 12:31] VITALS: BP 96/65; PULSE 85; RESP 15
== END 2022-12-25 12:42 | disposition home or self-care (01) ==
LOC: EC 10:03
DX: O20.0 Threatened abortion (principal); O23.41 Unspecified infection of urinary tract in pregnancy, first trimester; O99.341 Other mental disorders complicating pregnancy, first trimester; O99.511 Diseases of the respiratory system complicating pregnancy, first trimester; O99.891 Other specified diseases and conditions complicating pregnancy; F32.A Depression, unspecified; F41.9 Anxiety disorder, unspecified; J45.909 Unspecified asthma, uncomplicated; Z3A.01 Less than 8 weeks gestation of pregnancy; Z88.5 Allergy status to narcotic agent
CPT/HCPCS: 36415; 86900; 86901; 80053; 85025; 81001; 81025; 84702; 76801; 99284; 96374; 96375 ×2; 96361 ×2; J1200; J2405; J0696